=== PATIENT | male | born 1985 | race Caucasian/White ===

== ENCOUNTER 2022-12-13 22:47 | Emergency (ER) | payer OTHER, SELFPAY ==
--- NOTE | ~2022-12-13 | CT_ITS ---
EXAMINATION: CT abdomen pelvis wo con DATE: 12/14/2022 01:05 INDICATION: Left flank pain. TECHNIQUE: Computed tomography (CT) of the abdomen and pelvis was performed without intravenous contr ast. Automated exposure control and iterative reconstruction technique were employed. The dose-length product was 1934.79 mGy-cm. COMPARISON: None. FINDINGS: The visualized portions of the lung bases demonstrate mild atelectasis. No pleural effusion . The heart size is normal. No pericardial effusion. There is diffuse hepatic steatosis. The gallblad krystyna, spleen, pancreas, adrenal glands, and right kidney are normal. There is mild left hydronephrosis and hydroureter. There is a 2 mm stone in distal left ureter. There are bilateral inguinal hernias c ontaining fat. There are no dilated loops of bowel. The appendix is normal. There are no pathological ly enlarged lymph nodes. There is no free intraperitoneal fluid. There is mild thoracic and lumbar sp ondylosis. IMPRESSION: 1. 2 mm stone in distal left ureter with mild left hydronephrosis and hydroureter. Reviewed, dictated and finalized at location E. IMPRESSION: 1. 2 mm stone in distal left ureter with mild left hydronephrosis and hydrouret er.
[2022-12-13 22:52] VITALS: BP 170/105; PULSE 86; RESP 14; TEMP 36.7; O2SAT 95
[2022-12-13 23:41] LABS: Appearance Urine Cloudy (Clear); Bacteria Urine None Seen /hpf; Bilirubin Urine Negative (Negative); Blood Urine 3+ (Negative); Color Urine Yellow (Yellow); Glucose Urine UA Negative (Negative); Ketones Urine Trace mg/dL (Negative); Leukocyte Esterase Ur Negative LEU/UL (Negative); Nitrate Urine Negative (Negative); Non Pathogenic Casts 0-2; Protein Urine 2+ mg/dL (Negative); RBC Urine >100 /hpf (0-2); Specific Grav Ur 1.029 (1.001-1.035); Squamous Epithelial Cell Urine None seen /hpf (Few); Urobilinogen Urine 0.2 mg/dL (<2.0); WBC Urine 0-5 /hpf; pH Urine 5.5 (5.0-9.0)
[2022-12-13 23:48] LABS: Add Urine Microscopic? YES
--- NOTE | 2022-12-14 00:31 | ED.GENADULT ---
HPI - General Adult General Chief complaint: Urogenital-Male Stated complaint: Left flank pain I think I have a kidney Stone Time Seen by Provider: 12/14/22 00:20 Source: patient Mode of arrival: ambulatory Limitations: no limitations History of Present Illness HPI narrative: This is a 37-year-old male who presents to the ED with chief complaint left leg pain beginning earlier today. Reports onset of severe left flank pain radiating now into the groin region. States he also had some urinary frequency and stinging today. Denies hematuria. Denies having this before but feels that he may have a kidney stone. States he drinks a lot of monsters. States it is very difficult to get in a comfortable position. Denies fevers, chills, problems with bowel movements, chest pain, shortness of breath, cough. Related Data Allergies Allergy/AdvReac Type Severity Reaction Status Date / Time cefaclor Allergy Mild Verified 12/27/11 11:37 sulfamethoxazole Allergy Mild Verified 12/27/11 11:37 trimethoprim Allergy Mild Verified 12/27/11 11:37 Review of Systems Review of Systems: All systems as dictated in HPI Exam Narrative: GENERAL: Appears in pain. HEAD: Normocephalic, atraumatic. EYES: PERRLA and EOMI. ENT: Nares clear, no rhinorrhea or epistaxis. Mucous membranes moist. Oropharynx without tonsillar hypertrophy exudate or other lesions. NECK: Supple. No adenopathy or masses. CHEST: No respiratory distress. Clear to auscultation. No wheezes rales or rhonchi HEART: Regular rate and rhythm. No murmur heard. Normal peripheral pulses. ABDOMEN: Positive for flank tenderness. Negative right flank tenderness. Soft, otherwise nontender, nondistended, normal active bowel sounds. MSK: Normal range of motion. No edema. SKIN: Warm, dry, no rash. NEURO: Alert and oriented x3. No focal deficits. PSYCH: Normal mood and affect. Course Course Emergency Course: Reevaluation 0327: Patient feeling improved and wants to go home. Vital Signs Vital signs: Vital Signs Temperature 98.0 F 12/13/22 22:52 Pulse Rate 86 12/13/22 22:52 Respiratory Rate 14 12/13/22 22:52 Blood Pressure 170/105 H 12/13/22 22:52 Pulse Oximetry 95 12/13/22 22:52 Oxygen Delivery Room Air 12/13/22 22:52 Temperature 98.0 F 12/13/22 22:52 Pulse Rate 72 12/14/22 03:21 Respiratory Rate 14 12/14/22 03:21 Blood Pressure 144/86 H 12/14/22 03:21 Pulse Oximetry 97 12/14/22 03:21 Oxygen Delivery Room Air 12/13/22 22:52 Medical Decision Making MDM Narrative Medical decision making narrative: This is a 37-year-old male who presents to the ED with chief complaint of left flank pain beginning earlier today. Additional complaints of nausea and vomiting. Vitals show elevated blood pressure but otherwise intact. On exam he has left flank tenderness. He appears in renal colic. Urinalysis shows evidence of hematuria but no evidence of infection. CBC is unremarkable. CMP does show slightly elevated creatinine at 1.60 with a normal BUN. CT abdomen pelvis without contrast: 1. Obstructing 2 mm distal left ureter stone located immediately proximal to the left UVJ. Mild upstream hydroureteronephrosis. 2. Otherwise no acute findings. 3. Hepatic steatosis Symptoms and presentation consistent with left ureteral stone. Pain was controlled here in the ED with morphine and Toradol. He will be discharged home with the appropriate medications for kidney stone. pt will be discharged in stable condition. Return precautions given and supportive measures discussed. Pt is understanding and agreeable with plan for discharge and follow-up with PCP. Vital Signs Vital Signs: Vital Signs Temperature 98.0 F 12/13/22 22:52 Pulse Rate 86 12/13/22 22:52 Respiratory Rate 14 12/13/22 22:52 Blood Pressure 170/105 H 12/13/22 22:52 Pulse Oximetry 95 12/13/22 22:52 Oxygen Delivery Room Air 12/13/22 22:52 Temperature 98.0
[2022-12-14] MEDS: ONDANSETRON INJ 4 MG/2 ML VIAL IV PUSH (00:48)
[2022-12-14] MEDS: MORPHINE SULFATE (*CRX) 4 MG/ML INJ IV PUSH (00:48)
[2022-12-14 01:11] LABS: Alanine Aminotransferase 34 U/L (6-50); Albumin Level 4.3 g/dL (3.5-5.1); Alkaline Phosphatase 55 U/L (38-126); Anion Gap 9 mmol/L (8-16); Aspartate Amino Transferase 45 U/L (17-59); Bilirubin,Total 0.7 mg/dL (0.2-1.3); Blood Urea Nitrogen 19 mg/dL (9-20); Calcium 9.2 mg/dL (8.4-10.2); Carbon Dioxide 30 mmol/L (22-30); Chloride 99 mmol/L (98-107); Estimated CRCL calculation 94 ml/min; Estimated Glomerular Filt Rate 49; Glucose 156 mg/dL (65-110); Lipase 33 U/L (23-300); Potassium 3.5 mmol/L (3.4-5.0); Sodium 138 mmol/L (137-145)
[2022-12-14 01:13] LABS: Basophils Absolute Auto 0.1 K/mm3 (0.0-0.1); Basophils Percent Auto 0.4 % (0.2-1.2); Eosinophils Percent Auto 0.1 % (0-4.4); Hematocrit 54.2 % (42.0-52.0); Hemoglobin 17.8 g/dL (14.0-18.0); Immature Granulocyte Absolute 0.09 K/mm3 (0.00-0.031); Immature Granulocyte Percent A 0.8 % (0-0.5); Lymphocytes Absolute Auto 1.24 K/mm3 (0.9-3.2); Lymphocytes Percent Auto 10.9 % (18.3-44.2); Mean Corpuscular HGB Conc 32.8 g/dl (32-36); Mean Corpuscular Volume 85.4 fl (80-100); Mean Platelet Volume 10.7 fl (7.4-10.4); Monocytes Absolute Auto 1.1 K/mm3 (0.1-0.6); Monocytes Percent Auto 9.5 % (2.6-8.5); Neutrophils Absolute Auto 8.9 K/mm3 (1.3-6.7); Neutrophils Percent Auto 78.3 % (45.5-73.1); Platelet Count Result 237 k/mm3 (150-375); Red Blood Count 6.35 M/mm3 (4.6-6.20); Red Cell Distribution Width 14.6 % (11.5-14.5); White Blood Count 11.4 K/mm3 (4.5-10.0)
[2022-12-14] MEDS: KETOROLAC 30 MG/ML VIAL (*BKC) IV PUSH (01:31)
[2022-12-14 02:14] VITALS: BP 144/100; PULSE 85; RESP 16; O2SAT 95
[2022-12-14 03:21] VITALS: BP 144/86; PULSE 72; RESP 14; O2SAT 97
[2022-12-14] MEDS: KETOROLAC 15 MG/ML VIAL (*BKC) IV PUSH (04:15)
[2022-12-14 04:27] VITALS: BP 137/84; PULSE 81; RESP 15; O2SAT 97
== END 2022-12-14 04:29 | disposition home or self-care (01) ==
PROVIDERS: Emergency Medicine; Emergency Provider Physician Assistant; PCP Family Medicine Sports Medicine
DX: N13.2 Hydronephrosis with renal and ureteral calculous obstruction (principal)
CPT/HCPCS: 36415; 74176; 80053; 81001; 83690; 85025; 96374; 96375; 96376; 99284; J1885; J2270; J2405

== ENCOUNTER 2023-09-04 15:33 | Outpatient (CLI) | payer OTHER, SELFPAY ==
--- NOTE | ~2023-09-04 | XR_ITS ---
XR ankle LT min 3V Ordering provider: Esequiel Chan MD History: . PAIN IN LEFT ANKLE AND JOINTS OF LEFT FOOT SINCE . Comparison: None. FINDINGS: BONES: No acute fracture or dislocation. JOINT SPACES: The ankle mortise is normal. SOFT TISSUES: Soft tissue swelling over the lateral malleolus. IMPRESSION: No acute osseous abnormality left ankle. Reviewed, dictated and finalized at location A.
== END 2023-09-04 15:34 | disposition home or self-care (01) ==
PROVIDERS: PCP Family Medicine Sports Medicine; Visit Provider Family Medicine
DX: M25.572 Pain in left ankle and joints of left foot (principal)
CPT/HCPCS: 73610